=== PATIENT | male | born 1990 | race Caucasian/White ===

== ENCOUNTER 2018-08-27 02:56 | Emergency (ER) | payer SELFPAY ==
[2018-08-27 02:56] VITALS: BMI 25.8
[2018-08-27 03:24] VITALS: O2SAT 99
--- NOTE | 2018-08-27 03:25 | ED PDOC ---
HPI: Chest Pain Time Seen by Provider: 08/27/18 03:23 Chief Complaint (Nursing): Palpitations Chief Complaint (Provider): Anxiety Attack History Per: Patient History/Exam Limitations: no limitations Onset/Duration Of Symptoms: Hrs (two hours prior to presentation) Current Symptoms Are (Timing): Gone Now Severity: Mild (Pt presents to the ED complaining of feeling chest palpitations upon awaking during the night this evening. Pt denies that the symptoms currently exist; he denies chest pain, pressure or radiating numbness. Pt denies HTN, any previously dx of anxiety, DM or any other chronic illness. Pt and his do indicate that a similar event occurred about two years ago) Past Medical History Reviewed: Historical Data, Nursing Documentation, Vital Signs Vital Signs: Last Vital Signs Temp 98.4 F 08/27/18 03:21 Pulse 85 08/27/18 03:21 Resp 18 08/27/18 03:21 BP 118/69 08/27/18 03:21 Pulse Ox 99 08/27/18 03:21 - Family History Family History: States: Unknown Family Hx, CAD (maternal GM of heart attack in her 30's;) - Home Medications Home Medications: Ambulatory Orders Medication Instructions Recorded Famotidine [Pepcid] 40 mg PO DAILY #30 tab 03/21/15 Albuterol HFA [Ventolin HFA 90 2 puff IH Q4H #1 puff 05/13/15 mcg/actuation (8 g)] - Allergies Allergies/Adverse Reactions: Allergies Allergy/AdvReac Type Severity Reaction Status Date / Time No Known Allergies Allergy Verified 05/20/15 13:50 BRITNEY Risk Score for UA/NSTEMI - BRITNEY Risk Score Age > 64: NO 3 or more CAD Risk Factors: NO Known CAD (Stenosis greater than 50%): NO Aspirin use in past 7 days: NO Severe Angina: NO EKG ST changes greater than 0.5mm: NO Positive Cardiac Marker: NO BRITNEY Score: 0 Risk %: 5% Wells Criteria for PE - Wells Criteria for Pulmonary Embolism Clinical Signs and Symptoms of DVT: No P.E is #1 Diagnosis, or Equally Likely: No Heart Rate >100: No Immobilization at least 3 days;Surgery previous 4 weeks: No Previous, objectively diagnosed PE or DVT: No Hemoptysis: No Malignancy w/treatment within 6 months, or palliative: No Total Score: 0 Review of Systems ROS Statement: Except As Marked, All Systems Reviewed And Found Negative Cardiovascular: Positive for: Palpitations Physical Exam - Reviewed Nursing Documentation Reviewed: Yes Vital Signs Reviewed: Yes - Physical Exam Appears: Positive for: Well, Non-toxic, No Acute Distress. Negative for: Uncomfortable Head Exam: Positive for: ATRAUMATIC, NORMAL INSPECTION Skin: Positive for: Normal Color, Warm, Dry. Negative for: Diaphoresis, Pallor, Rash Eye Exam: Positive for: Normal appearance, PERRL. Negative for: Nystagmus, Periorbital swelling, Periorbital tenderness ENT: Positive for: Normal ENT Inspection Neck: Positive for: Normal, Painless ROM, Supple. Negative for: Decreased ROM Cardiovascular/Chest: Positive for: Regular Rate, Rhythm, Chest Non Tender, Murmur. Negative for: Edema, Gallop, Bradycardia, Tachycardia Respiratory: Positive for: Normal Breath Sounds Pulses-Carotid (L): 2+ Pulses-Carotid (R): 2+ Pulses-Radial (L): 2+ Pulses-Radial (R): 2+ Gastrointestinal/Abdominal: Positive for: Normal Exam - Laboratory Results Result Diagrams: 08/27/18 04:08 08/27/18 04:08 - ECG ECG: Positive for: Interpreted By Me, Viewed By Me ECG Rhythm: Positive for: Normal QRS, Normal ST Segment, Sinus Rhythm Rate: 73 O2 Sat by Pulse Oximetry: 99 Pulse Ox Interpretation: Normal Medical Decision Making Medical Decision Making: I: paroxomal palpitations R/O ACS event P: cardiac workup and monitor All results are benign and without clinical significance Disposition - Clinical Impression Clinical Impression: Palpitations - Patient ED Disposition Is Patient to be Admitted: No Counseled Patient/Family Regarding: Diagnosis - Disposition Referrals: Kendall Coats MD [Staff Provider] - [facility] [Outside] Disposition: Routine/Home Disposition Time: 06:13 Condition: STABLE Instructions: Palpitations, Palpitations (DC) Forms: [employer] ([place])
[2018-08-27 04:33] LABS: BASO % 0.4 % (0.0-2.0); EOS # 0.1 K/uL (0.0-0.7); EOS % 1.4 % (0.0-4.0); HEMOGLOBIN 12.8 g/dL (12.0-18.0); LYMPH # 2.1 K/uL (1.0-4.3); LYMPH % 29.3 % (20.0-40.0); MEAN CELL VOLUME 89.6 fl (80.0-94.0); MEAN CORPUSCULAR HEMOGLOBIN 30.3 pg (27.0-31.0); MEAN CORPUSCULAR HGB CONC 33.8 g/dL (33.0-37.0); MONO # 0.8 K/uL (0.0-0.8); MONO % 10.8 % (0.0-10.0); NEUT # 4.1 K/uL (1.8-7.0); NEUT % 58.1 % (50.0-75.0); RBC 4.22 Mil/uL (4.40-5.90); RED CELL DISTRIBUTION WIDTH 13.9 % (11.5-14.5)
[2018-08-27 04:38] LABS: URINE BILIRUBIN NEGATIVE (NEGATIVE); URINE BLOOD NEGATIVE (NEGATIVE); URINE CLARITY CLEAR (Clear); URINE COLOR YELLOW (YELLOW); URINE GLUCOSE (UA) NEG (NEGATIVE); URINE LEUKOCYTE ESTERASE NEG Leu/uL (Negative); URINE PROTEIN NEGATIVE (NEGATIVE); URINE UROBILINOGEN 0.2-1.0 mg/dL (0.2-1.0)
[2018-08-27 04:39] LABS: ALB/GLOB RATIO 1.1 (1.0-2.1); ALBUMIN 3.6 g/dL (3.5-5.0); ALT/SGPT 41 U/L (21-72); AST/SGOT 27 U/L (17-59); BLOOD UREA NITROGEN 17 mg/dl (9-20); CALCIUM 8.8 mg/dL (8.4-10.2); GFR NON-AFRICAN AMERICAN > 60
[2018-08-27 06:24] VITALS: BP 101/57; PULSE 75; RESP 15; TEMP 98.6
--- NOTE | 2018-08-27 10:29 | RAD ---
Date of service: 08/27/2018 HISTORY: cp and palp COMPARISON: Chest radiograph dated 05/13/2015. TECHNIQUE: Chest PA and lateral FINDINGS: LUNGS: No active pulmonary disease. PLEURA: No significant pleural effusion identified. No pneumothorax apparent. CARDIOVASCULAR: No aortic atherosclerotic calcification present. Normal cardiac size. No pulmonary vascular congestion. OSSEOUS STRUCTURES: No significant abnormalities. VISUALIZED UPPER ABDOMEN: Normal. OTHER FINDINGS: None. IMPRESSION: No active disease.
--- NOTE | 2018-08-28 10:04 | CARD ---
APPROVED REPORT Date of service: 08/27/2018 EKG Measurement Heart [id number] [place] [id number] <Conclusion> Normal sinus rhythm Normal ECG
== END 2018-08-27 06:19 | disposition home or self-care (01) ==
LOC: H.ER 02:56
DX: R00.2 Palpitations (principal)